=== PATIENT | female | born 1995 | race Caucasian/White ===

== ENCOUNTER 2019-07-13 14:58 | Emergency (ER) | payer MEDICAID ==
[~2019-07-13] VITALS: Ht 165.1 cm; Wt 90.7 kg
[~2019-07-13 14:58] MED LIST: PREN-96 PO
[2019-07-13 15:55] VITALS: BP 123/84
[2019-07-13] MEDS ORDERED: IBUPROFEN 600 MG TAB PO ONE (16:00)
== END 2019-07-13 18:11 | disposition home or self-care (01) ==
LOC: ER 14:58
DX: S93.402A Sprain of unspecified ligament of left ankle, initial encounter (principal); F17.210 Nicotine dependence, cigarettes, uncomplicated; Z79.899 Other long term (current) drug therapy; X50.1XXA Overexertion from prolonged static or awkward postures, initial encounter; Y93.89 Activity, other specified; Y92.89 Other specified places as the place of occurrence of the external cause; Y99.8 Other external cause status
CPT/HCPCS: 73610

== ENCOUNTER 2021-04-10 17:34 | Emergency (ER) | payer MEDICAID, OTHER ==
[~2021-04-10] VITALS: Ht 165.1 cm; Wt 111.1 kg
[2021-04-10 21:18] VITALS: BP 118/88
== END 2021-04-10 21:51 | disposition home or self-care (01) ==
LOC: ER 17:34
DX: S13.9XXA Sprain of joints and ligaments of unspecified parts of neck, initial encounter (principal); S23.3XXA Sprain of ligaments of thoracic spine, initial encounter; E66.9 Obesity, unspecified; F17.210 Nicotine dependence, cigarettes, uncomplicated; F12.10 Cannabis abuse, uncomplicated; Z68.41 Body mass index [BMI] 40.0-44.9, adult; V43.52XA Car driver injured in collision with other type car in traffic accident, initial encounter; Y93.89 Activity, other specified; Y92.488 Other paved roadways as the place of occurrence of the external cause; Y99.8 Other external cause status
CPT/HCPCS: 72040; 72070

== ENCOUNTER 2023-02-21 18:24 | Emergency (ER) | payer MEDICAID ==
[~2023-02-21] VITALS: Ht 165.1 cm; Wt 107.1 kg
[2023-02-21 20:03] VITALS: BP 129/82; RESP 18; TEMP 99.2; O2SAT 99
[2023-02-21 21:15] LABS: Alanine Aminotransferase 150 U/L (7-40); Albumin 4.2 g/dL (3.2-4.8); Alkaline Phosphatase 70 U/L (46-116); Anion Gap 7 (5-15); Aspartate Aminotransferase 91 U/L (13-40); Basophils # (auto) 0.3 10 ^3/uL (0-0.2); Basophils % (auto) 3.5 % (0.0-2.0); Bilirubin, Total 0.8 mg/dL (0.2-1.0); Calcium 9.5 mg/dL (8.5-10.1); Carbon Dioxide 26 mmol/L (20-30); Chloride 104 mmol/L (98-107); Eosinophils # (auto) 0 10 ^3/uL (0-0.8); Eosinophils % (auto) 0.5 % (0.0-7.0); Glucose 101 mg/dL (74-106); Hematocrit 45.8 % (36.0-46.0); Hemoglobin 15.4 g/dL (12.2-16.2); Lymphocytes # (auto) 2.2 10 ^3/uL (0.4-5.4); Lymphocytes % (auto) 29.7 % (10.0-50.0); Mean Corpuscular Hemoglobin 30.4 pg (28.0-32.0); Mean Corpuscular Hgb Conc. 33.5 g/dL (32.0-36.0); Mean Corpuscular Volume 90.5 fL (80.0-100.0); Monocytes # (auto) 0.5 10 ^3/uL (0-1.3); Monocytes % (auto) 7.3 % (0.0-12.0); Neutrophils # (auto) 4.4 10 ^3/uL (1.6-8.6); Nucleated Red Blood Cells % 0.4 %; Potassium 3.7 mmol/L (3.5-5.1); Red Blood Cells 5.06 10^6/uL (4.0-5.20); Red Cell Distribution Width 12.7 % (11.8-14.3); Sodium 137 mmol/L (136-145); White Blood Cell 7.4 10^3/uL (4.4-10.8)
[2023-02-21 21:16] LABS: Total Protein 7.5 g/dL (5.7-8.2)
[2023-02-21 21:17] LABS: BUN/Creatinine Ratio 6.5 (10.0-20.0); Blood Urea Nitrogen < 5 mg/dL (9-23)
[2023-02-21 21:21] LABS: Urine Bacteria NONE SEEN /hpf (None Seen); Urine Blood Negative /uL (Negative); Urine Clarity Clear (Clear); Urine Color Yellow (Yellow); Urine Protein, UAD Negative (Negative); Urine Urobilinogen Normal (Negative); Urine WBC <1 /hpf (0 - 5)
[2023-02-21] MEDS ORDERED: ALBUAER3 IN (21:53)
[2023-02-21] MEDS ORDERED: PRED20TA2 PO (21:53)
[2023-02-21] MEDS ORDERED: AUG875T PO (21:53)
[2023-02-21 21:59] VITALS: PULSE 106
[2023-02-21] MEDS ORDERED: ACETAMINOPHEN 325 MG TAB PO ONE (22:00)
[2023-02-21] MEDS ORDERED: cefTRIAXone SOD 1,000 MG VL IM ONE (22:00)
== END 2023-02-21 22:39 | disposition home or self-care (01) ==
LOC: ER 18:24
DX: J18.9 Pneumonia, unspecified organism (principal); R50.9 Fever, unspecified; R74.8 Abnormal levels of other serum enzymes; F32.9 Major depressive disorder, single episode, unspecified; F17.210 Nicotine dependence, cigarettes, uncomplicated; F15.90 Other stimulant use, unspecified, uncomplicated
CPT/HCPCS: 36415; 71045; 80053; 81001; 81025; 84484; 85025; 93005; 96372; 99285; J0696

== ENCOUNTER 2023-02-28 09:30 | Emergency (ER) | payer MEDICAID ==
[~2023-02-28] VITALS: Ht 165.1 cm; Wt 106.7 kg
[~2023-02-28 09:30] MED LIST changes: +ALBUAER3 IN; +AUG875T PO; +PRED20TA2 PO
[2023-02-28 10:07] LABS: Urine Bacteria NONE SEEN /hpf (None Seen); Urine Blood Negative /uL (Negative); Urine Clarity Clear (Clear); Urine Color Yellow (Yellow); Urine Mucus FEW (None Seen); Urine Protein, UAD Negative (Negative); Urine Specific Gravity 1.014 (1.001-1.035); Urine Urobilinogen Normal (Negative); Urine WBC 1 /hpf (0 - 5); Urine pH 6.5 (5.0-8.0)
[2023-02-28 10:18] LABS: Basophils # (auto) 0 10 ^3/uL (0-0.2); Basophils % (auto) 0.6 % (0.0-2.0); Eosinophils # (auto) 0 10 ^3/uL (0-0.8); Eosinophils % (auto) 0.5 % (0.0-7.0); Hematocrit 44.2 % (36.0-46.0); Hemoglobin 14.8 g/dL (12.2-16.2); Lymphocytes # (auto) 3.3 10 ^3/uL (0.4-5.4); Lymphocytes % (auto) 44.9 % (10.0-50.0); Mean Corpuscular Hemoglobin 30.1 pg (28.0-32.0); Mean Corpuscular Hgb Conc. 33.5 g/dL (32.0-36.0); Mean Corpuscular Volume 89.8 fL (80.0-100.0); Monocytes # (auto) 0.5 10 ^3/uL (0-1.3); Monocytes % (auto) 6.6 % (0.0-12.0); Neutrophils # (auto) 3.5 10 ^3/uL (1.6-8.6); Neutrophils % (auto) 47.4 % (37.0-80.0); Nucleated Red Blood Cells % 0.5 %; Red Blood Cells 4.93 10^6/uL (4.0-5.20); Red Cell Distribution Width 12.9 % (11.8-14.3); White Blood Cell 7.5 10^3/uL (4.4-10.8)
[2023-02-28 10:39] LABS: Alanine Aminotransferase 73 U/L (7-40); Albumin 3.8 g/dL (3.2-4.8); Alkaline Phosphatase 55 U/L (46-116); Anion Gap 5 (5-15); Aspartate Aminotransferase 41 U/L (13-40); BUN/Creatinine Ratio 10.6 (10.0-20.0); Bilirubin, Total 0.6 mg/dL (0.2-1.0); Blood Urea Nitrogen 7 mg/dL (9-23); Calcium 8.8 mg/dL (8.5-10.1); Carbon Dioxide 25 mmol/L (20-30); Chloride 108 mmol/L (98-107); Glucose 94 mg/dL (74-106); Potassium 4.3 mmol/L (3.5-5.1); Sodium 138 mmol/L (136-145); Total Protein 6.7 g/dL (5.7-8.2)
[2023-02-28] MEDS ORDERED: IOHEXOL 350 MG/ML 100ML IJ ONE (11:12)
[2023-02-28 14:21] VITALS: BP 133/73; PULSE 96; RESP 18; TEMP 98.4; O2SAT 100
== END 2023-02-28 14:22 | disposition home or self-care (01) ==
LOC: ER 09:30
DX: J40 Bronchitis, not specified as acute or chronic (principal); F17.210 Nicotine dependence, cigarettes, uncomplicated; F12.10 Cannabis abuse, uncomplicated
CPT/HCPCS: 36415; 71045; 71275; 80053; 81001; 85025; 85379; 99285; Q9967